=== PATIENT | male | born 1945 | race Caucasian/White ===

== ENCOUNTER 2019-07-29 06:01 | Inpatient (IN) ==
--- NOTE | 2019-07-09 16:34 | PAT Medication Instructions ---
Medication Instructions Date of Service July 09, 2019 Home Medications acetaminophen [Tylenol Arthritis Pain] 1,300 mg PO Q12H PRN allopurinol 300 mg PO QAM aspirin 81 mg PO HS cholecalciferol (vitamin D3) [Vitamin D3] 5,000 unit PO QAM colchicine [Colcrys] 0.6 mg PO UD PRN levothyroxine [Synthroid] 25 mcg PO QAM lisinopril-hydrochlorothiazide 1 tab PO QAM loratadine 10 mg PO HS metformin 500 mg PO QAM omeprazole 20 mg PO QAM simvastatin 80 mg PO HS tramadol 50 mg PO Q6H PRN STOP taking 48 hours before surgery colchicine [Colcrys] 0.6 mg PO UD PRN DO NOT take the morning of surgery cholecalciferol (vitamin D3) [Vitamin D3] 5,000 unit PO QAM lisinopril-hydrochlorothiazide 1 tab PO QAM metformin 500 mg PO QAM Take morning of surgery With a small sip of water, OTHERWISE NOTHING TO EAT OR DRINK AFTER MIDNIGHT: acetaminophen [Tylenol Arthritis Pain] 1,300 mg PO Q12H PRN (okay to take up to 4 hours prior to surgery if needed) allopurinol 300 mg PO QAM levothyroxine [Synthroid] 25 mcg PO QAM omeprazole 20 mg PO QAM tramadol 50 mg PO Q6H PRN (okay to take up to 4 hours prior to surgery if needed) Take evening before surgery acetaminophen [Tylenol Arthritis Pain] 1,300 mg PO Q12H PRN (if needed) aspirin 81 mg PO HS loratadine 10 mg PO HS simvastatin 80 mg PO HS tramadol 50 mg PO Q6H PRN (if needed) Other Notes If you have any questions please call us at [phone] or [phone] or [phone] or [phone]
--- NOTE | 2019-07-10 12:10 | Anesthesiology Consultation ---
Date of Service July 10, 2019 Assessment & Plan (1) Encounter for pre-operative examination: - Awaiting review preop testing. - Awaiting surgeon-ordered PCP clearance scheduled 07/18 (Dr. Hardy). - Check BSG AM DOS Chart Review Chart Review: Patient seen in Pre Admission Testing Teaching & Discussion Pre-Anesthesia Teaching/Discussion Notes: Instructed NPO after midnight before surgery,except medications with 15 cc of water. Medication instructions provided according to the PAT guidelines. History Surgery Operation Date: 07/29/19 11:40 Proposed Procedures p Right Total Knee Arthroplasty - Samm Mitchell DO Height/Weight Height: 6 ft 2 in Weight: 126.7 kg Allergies Allergy/AdvReac Type Severity Reaction Status Date / Time erythromycin base Allergy Anaphylaxis Verified 07/04/19 09:52 etodolac Allergy Anaphylaxis Verified 07/04/19 09:52 Penicillins Allergy Anaphylaxis Verified 07/04/19 09:52 Medications Home Medications Medication Instructions Recorded Confirmed Last Taken acetaminophen [Tylenol Arthritis 1,300 mg PO Q12H PRN 07/04/19 07/04/19 Unknown Pain] allopurinol 300 mg PO QAM 07/04/19 07/04/19 Unknown aspirin 81 mg PO HS 07/04/19 07/04/19 Unknown cholecalciferol (vitamin D3) 5,000 unit PO QAM 07/04/19 07/04/19 Unknown [Vitamin D3] colchicine [Colcrys] 0.6 mg PO UD PRN 07/04/19 07/04/19 Unknown levothyroxine [Synthroid] 25 mcg PO QAM 07/04/19 07/04/19 Unknown lisinopril-hydrochlorothiazide 1 tab PO QAM 07/04/19 07/04/19 Unknown loratadine 10 mg PO HS 07/04/19 07/04/19 Unknown metformin 500 mg PO QAM 07/04/19 07/04/19 Unknown omeprazole 20 mg PO QAM 07/04/19 07/04/19 Unknown simvastatin 80 mg PO HS 07/04/19 07/04/19 Unknown tramadol 50 mg PO Q6H PRN 07/04/19 07/04/19 Unknown Past Medical History Medical History Diabetes mellitus, type 2 NIDDM GERD (gastroesophageal reflux disease) controlled Gout Hearing deficit BL SMITH History of prostate cancer S/P PROSTATECTOMY (NO CHEMO/XRT) Hyperlipidemia Hypertension Hypothyroidism Obesity Osteoarthritis Renal insufficiency PCP MONITORING Sleep apnea CPAP Tinnitus RIGHT Urinary incontinence Exercise / Class Metabolic Activity III < 4 Walking/Shop/Light housework (uses cane PRN) Past Surgical History Surgical History History of colonoscopy History of prostate biopsy History of prostatectomy History of tonsillectomy Past Anesthesia History No Hx of Anesthesia Complications and No Family Hx of Anesthesia Complications History of PONV No Hx of PONV and No Hx of Motion Sickness Social History Smoking Status: Never smoker Do You Dip or Chew Tobacco: No Hx Alcohol Use: No Hx Substance Use: No substance use type: does not use Review of Systems Reflux controlled. Patient denies chest pain, shortness of breath, cough, wheezing, palpitations. Physical Exam Vital Signs VITALS BP 138/84 P 54 TEMP 97.6 SP02 95%RA RESP 18 PHYSICAL Full neck and c-spine range of motion. Full TMJ range of motion. TMD 3.5 finger breaths Mallampati Score 3 Dentition: missing upper front left/several missing Lungs: clear throughout to auscultation Cardiac: regular rate and rhythm, no murmurs noted Spine: normal Carotid arteries: negative bruit Extremities: no edema
--- NOTE | 2019-07-10 13:04 | XRay Report ---
XR chest Pre-admission PA/Lat HISTORY: Preop. COMPARISON: None. FINDINGS: The lungs are clear. The heart is mildly enlarged. No pleural effusions. No pneumothorax. N o evidence for pulmonary edema. IMPRESSION: Mild cardiomegaly. Electronically signed by: Carson Hopper M.D. 07/10/2019 1:02 PM
[2019-07-10 13:20] LABS: Basophils # (auto) 0.01 K/uL (0-0.2); Basophils % (auto) 0.1 %; Eosinophils # (auto) 0.28 K/uL (0-0.5); Eosinophils % (auto) 3.5 %; Hematocrit (blood only) 45.5 % (42-52); Hemoglobin 15.3 g/dL (14.0-18.0); Immature Granulocytes # (auto) 0.06 K/uL (0.00-0.02); Immature Granulocytes % (auto) 0.8 %; Lymphocytes # (auto) 2.02 K/uL (1.2-3.4); Lymphocytes % (auto) 25.3 %; Mean Corpuscular Hemoglobin 31.5 pg (25-34); Mean Corpuscular Hgb Conc 33.6 g/dL (32-36); Mean Corpuscular Volume 93.6 fL (80-100); Mean Platelet Volume 10.7 fL (7.4-10.4); Monocytes # (auto) 0.68 K/uL (0.11-0.59); Monocytes % (auto) 8.5 %; Neutrophils # (auto) 4.93 K/uL (1.4-6.5); Neutrophils % (auto) 61.8 %; Platelet Count 211 K/uL (130-400); RDW Coefficient of Variation 14.8 % (11.5-14.5); RDW Standard Deviation 50.6 fL (36.4-46.3); Red Blood Count 4.86 M/uL (4.7-6.1); White Blood Count 7.98 K/uL (4.8-10.8)
[2019-07-10 13:21] LABS: Appearance Urine Clear (Clear); Bilirubin Urine Negative (Negative); Blood Urine Negative (Negative); Color Urine Yellow; Glucose Urine UA Negative (Negative); Ketones Urine Negative (Negative); Leukocyte Esterase Urine Negative (Negative); Nitrite Urine Negative (Negative); Protein Urine Negative (Negative); Specific Gravity Urine 1.018 (1.000-1.030); Urobilinogen Urine Negative (Negative)
[2019-07-10 13:29] LABS: BUN Creatinine Ratio 17.9 (10-20); Calcium 9.5 mg/dl (8.5-10.1); Creatinine Clr Calc Pharmacy 61.1 ml/min; Est GFR (African American) 52.4; Est GFR (Non-African American) 45.2
[2019-07-10 13:38] LABS: Partial Thromboplastin Ratio 1.1; Partial Thromboplastin Time 28.7 Seconds (21.0-31.0); Prothrombin Time 10.5 Seconds (9.0-12.0)
[2019-07-10 14:05] LABS: Estimated Average Glucose 140 mg/dl; Hemoglobin A1C 6.5 % (4.5-5.6)
--- NOTE | 2019-07-28 10:36 | History & Physical Report ---
Date of Service July 28, 2019 Assessment & Plan (1) Degenerative joint disease of knee, right: I have indicated the patient for right total knee replacement. The risks, benefits and complications of surgery were explained to the patient which include but not limited to infection, acute blood loss, DVT/PE, injury to nerves, vessels, bone, soft tissue, arthrofibrosis, chronic pain, failure of the prosthesis, knee dislocation, leg length discrepancy, need for additional surgery, cardiac and pulmonary events and . The patient wished to proceed with surgery and informed consent was obtained at this time. We will plan for ASA 81mg BID post-operatively for DVT prophylaxis. Upon discharge the patient will be discharged home with home health services. Appropriate clearances by PCP were obtained. History of Present Illness Chief Complaint: Right knee pain/djd Primary Care Provider: Ketan Hardy The patient is a 74 year old male who presents with complaints of severe right knee pain and DJD. The patient has failed outpatient conservative treatments to this point which included IA corticosteroid injection, SMITH injection, bracing, home exercise/walking program. Patient unable to take NSAIDs secondary to DM/RI. The patient's pain and limited function have progressed to the point where they severely hinder their activities of daily living and they no longer tolerate exercise programs. They are requesting to proceed with total knee replacement surgery. Allergies Allergy/AdvReac Type Severity Reaction Status Date / Time erythromycin base Allergy Anaphylaxis Verified 07/29/19 06:52 etodolac Allergy Anaphylaxis Verified 07/29/19 06:52 Penicillins Allergy Anaphylaxis Verified 07/29/19 06:52 Home Medications Home Medications Medication Instructions Recorded Confirmed Type acetaminophen [Tylenol Arthritis 1,300 mg PO Q12H PRN 07/04/19 07/04/19 History Pain] allopurinol 300 mg PO QAM 07/04/19 07/04/19 History aspirin 81 mg PO HS 07/04/19 07/04/19 History cholecalciferol (vitamin D3) 5,000 unit PO QAM 07/04/19 07/04/19 History [Vitamin D3] colchicine [Colcrys] 0.6 mg PO UD PRN 07/04/19 07/04/19 History levothyroxine [Synthroid] 25 mcg PO QAM 07/04/19 07/04/19 History lisinopril-hydrochlorothiazide 1 tab PO QAM 07/04/19 07/04/19 History loratadine 10 mg PO HS 07/04/19 07/04/19 History metformin 500 mg PO QAM 07/04/19 07/04/19 History omeprazole 20 mg PO QAM 07/04/19 07/04/19 History simvastatin 80 mg PO HS 07/04/19 07/04/19 History tramadol 50 mg PO Q6H PRN 07/04/19 07/04/19 History Past Med/Surg History Medical History Diabetes mellitus, type 2 NIDDM GERD (gastroesophageal reflux disease) controlled Gout Hearing deficit BL SMITH History of prostate cancer S/P PROSTATECTOMY (NO CHEMO/XRT) Hyperlipidemia Hypertension Hypothyroidism Obesity Osteoarthritis Renal insufficiency PCP MONITORING Sleep apnea CPAP Tinnitus RIGHT Urinary incontinence Surgical History History of colonoscopy History of prostate biopsy History of prostatectomy History of tonsillectomy Social History Preferred Language: [place] Communication Ability: Effective Wrapper Stripper Required: No Beliefs That Will Affect Care: None Current Living Situation: Spouse Other Information That Helps Us Care for You: No Feels Safe at Home: Yes Safety Concerns: Feels Safe At This Time Smoking Status: Never smoker Do You Dip or Chew Tobacco: No ; Second Hand Exposure: No ; Hx Alcohol Use: No Hx Substance Use: No Review of Systems Review of Systems: All systems reviewed & are unremarkable except as noted in HPI & below Constitutional: as per Subjective / HPI Physical Exam Physical Exam: RLE NVSI +EHL/FHL/TA/GS SILT grossly, +2 DP pulse, compartments soft NT, limited painful ROM, 0-110 degrees of flexion, +crepitus. Constitutional: WD/WN, vitals as above Eyes: PERRL, conjunctivae normal, anicteric sclerae ENMT: external ear and nose normal, oropharynx normal Neck: trachea midline, no thyromegaly Respiratory: normal respiratory effort, lungs clear to auscultation Cardiovascular: RRR, no murmur, no edema Gastrointestinal (Abdomen): normal bowel sounds, soft, nontender, no hepatosplenomegaly Musculoskeletal: no cyanosis or clubbing, extremities motor strength 5/5 Skin: no rashes, warm and dry Neurologic: patellar DTR's 2+ bilat, sensation intact Psychiatric: A+Ox3, euthymic affect Lymphatic: no cervical or axillary lymphadenopathy Results & Data Diagnostic Findings Multiple views of the knee demonstrates severe tricompartmental DJD with complete loss of the medial and patellofemoral joint space. +osteophytes, +sclerosis, +subchondral cysts.
[~2019-07-29 06:01] MED LIST: ACETAMINOPHEN 500 MG TAB PO SCH; CeleBREX 200 MG CAP PO SCH; FAMOTIDINE 20 MG TAB PO SCH; LR 15ML/HR IV SCH; METOCLOPRAMIDE HCL 10 MG TABLET PO SCH; ROPIVACAINE 0.5% HCL/PF 150 MG, BUPIVACAINE 0.5% MPF 30 ML, EPINEPHrine 30MG/30ML (OR U... INSTIL SCH; TRANEXAMIC ACID 1,000 MG **IV Pre-op IV SCH; VANCOMYCIN CONSULT ACTIVE PRN; VANCOMYCIN HCL 2,000 MG in SODIUM CHLORIDE 0.9% 500 ML IV SCH; dexAMETHasone 4 MG TAB PO SCH
[2019-07-29] MEDS ORDERED: TRANEXAMIC ACID 1,000 MG **IV Intra-op IV SCH (06:30)
[2019-07-29] MEDS ORDERED: BUPIVACAINE 0.5 % 5 MG/1 ML PF 10ML VIAL ONE (06:38)
[2019-07-29] MEDS ORDERED: ROPIVACAINE 0.5% 5 MG/ML 30 ML VIAL ONE (06:38)
[2019-07-29] MEDS ORDERED: CeleBREX 200 MG CAP ONE (06:45)
[2019-07-29] MEDS ORDERED: fentaNYL citrate 100 MCG/2 ML VIAL ONE (06:46)
[2019-07-29] MEDS ORDERED: MIDAZOLAM HCL 1 MG/ML 2ML VIAL ONE (06:47)
--- NOTE | 2019-07-29 06:52 | History & Physical Bridge Note ---
Date of Service July 29, 2019 History & Physical Bridge Note I have examined the patient, reviewed the History & Physical and in the interval since the performance of the History & Physical I have noted the following changes of clinical significance: no changes noted
[2019-07-29] MEDS ORDERED: ONDANSETRON INJ 2 MG/ML 2 ML VIAL IV PRN ×2 (07:29→12:34)
[2019-07-29] MEDS ORDERED: MEPERIDINE HCL 25 MG/ML CARP IV PRN (07:29)
[2019-07-29] MEDS ORDERED: HYDROmorphone INJ 1 MG/ML SYRINGE IV PRN (07:29)
[2019-07-29] MEDS ORDERED: PHENYLEPHRINE 100MCG/ML 5ML SYR IV PRN (07:29)
[2019-07-29] MEDS ORDERED: ePHEDrine sulfate 50 MG/ML AMP IV PRN (07:29)
[2019-07-29] MEDS ORDERED: ATROPINE SULFATE 0.1 MG/ML 10ML SYR IV PRN (07:29)
[2019-07-29] MEDS ORDERED: LABETALOL HCL IV 5 MG/ML 20ML IV PRN (07:29)
[2019-07-29] MEDS ORDERED: fentaNYL citrate 100 MCG/2 ML VIAL IV PRN (07:29)
[2019-07-29] MEDS ORDERED: ONDANSETRON INJ 2 MG/ML 2 ML VIAL ONE (08:12)
[2019-07-29] MEDS ORDERED: LIDOCAINE HCL 2% 2 ML VIAL/AMP(20MG/ML) INFIL ONE (08:12)
[2019-07-29] MEDS ORDERED: PROPOFOL IV EMULSION 10 MG/ML 20 ML VIAL IV ONE (08:12)
[2019-07-29] MEDS ORDERED: BACITRACIN INJ 50,000 UNIT VIAL ONE (08:18)
[2019-07-29] MEDS ORDERED: EPINEPHrine INJ 1 MG/ML AMP ONE (08:42)
--- NOTE | 2019-07-29 10:44 | Post Operative Brief Note ---
Immediate Post Op Note v1 Date of Surgery July 29, 2019 Pre & Post Diagnosis Operation Date: 07/29/19 09:10 Pre-Op Diagnosis: Degenerative Joint Disease of Right Knee Post-Op Diagnosis: Degenerative Joint Disease of Right Knee I identified the patient and participated in the time-out.: Yes Procedure Operation Date: 07/29/19 09:10 Actual Procedures p Right Total Knee Arthroplasty(Right) - Samm Mitchell DO Surgeon Samm Mitchell DO Orthodontic Technician Drew De La Paz Estimated Blood Loss 50 Findings Consistent with Post-Op Diagnosis Fluids 800 cc LR Specimens proximal tibia and distal femur bone fragments Anesthesia Type Spinal MAC Complications none Disposition Disposition: Recovery Room Overlapping Procedure I was present for: the critical portions of procedure. I was immediately available: during the entire case. Back up surgeon: was not required during procedure.
--- NOTE | 2019-07-29 10:54 | Operative Report ---
Post Operative Report Pre & Post Diagnosis Operation Date: 07/29/19 09:10 Pre-Op Diagnosis: Degenerative Joint Disease of Right Knee Post-Op Diagnosis: Degenerative Joint Disease of Right Knee I identified the patient and participated in the time-out.: Yes Procedure Operation Date: 07/29/19 09:10 Actual Procedures p Right Total Knee Arthroplasty(Right) - Samm Mitchell DO Surgeon Samm Mitchell DO Gift Manager Drew De La Paz Estimated Blood Loss 50 Findings Consistent with Post-Op Diagnosis Fluids 800 cc LR Specimens Distal femur and proximal tibial bone cuts Anesthesia Type Spinal MAC Complications none Disposition Disposition: Recovery Room Indications The patient is a 74-year-old male presents with long history of severe right knee tricompartmental DJD and failed outpatient conservative treatments including NSAIDs, bracing, injections and home walking/exercise program. The patient's symptoms have progressed to the point where it has been difficult to perform normal activities of daily living. I have indicated the patient for a right total knee arthroplasty, the risks and benefits and complications of the procedure include but are not limited to infection bleeding damage to bone, nerves, vessels, surrounding soft tissue, blood clots, loss of function, leg length discrepancy, dislocation, failure of the components, need for additional surgery and . The patient wished to proceed with surgery at this time and informed consent was obtained. Appropriate clearances were obtained. Description of Procedure COMPONENTS USED: Margo persona knee system: Femur size 10 standard, Tibia size H, tibial articulating surface 12 PS, Patella 35 mm Following induction of spinal anesthesia, a tourniquet was applied to the proximal aspect of the thigh and the patient's right leg was prepped and draped in the usual sterile manner. A timeout was performed, patient identified and site reyna confirmed. Appropriate pre-operative IV antibiotics were given. The limb was exsanguinated with an Esmarch bandage and tourniquet was inflated to 300 mmHg. A longitudinal midline incision was made over the anterior knee. Subcutaneous tissue was sharply dissected down to fascia. Electrocautery was used for hemostasis. Next a parapatellar arthrotomy was performed. Patella was everted and the knee was flexed. A Plummer retractor was used to expose the synovium above on the anterior aspect of the femur and removed down to bone. Next, the anterior fat pad was removed to aid in visualization. The medial face of the tibia was cleared of soft tissue first with a Bovie and a meyer elevator. This tissue was retracted posteriorly using a blunt Hohmann. Next, the extra-medullary tibial cutting guide was placed to the anterior aspect of the tibia. The tibia resection level was set taking 2mm from the defective tibial condyle. Resection depth was once again confirmed with klaudia wing. The medial and lateral collateral ligament was protected with two Hohmann retractors. The tibia guide was removed and proximal tibial bone fragment removed utilizing straight osteotome, electrocautery and Grace. Next, the distal femur intramedullary canal was accessed utilizing the step drill. The intramedullary distal femur cutting guide was placed into the canal and pinned into place. The distal femur was cut on the 5 degree +0 setting. Next the cutting guide was removed and the femur was sized. Care was taken to ensure appropriate manufacturing engineer paint all rotation and 3 degree holes were drilled. A size 10 4-in-1 cutting block was placed on the distal end of the femur and secured into place with two short headed screws. Two bent Hohmann retractors were placed to protect the medial and lateral collateral ligaments. The oscillating saw was used to cut anterior, posterior, anterior chamfer and posterior chamfer. The four and one cutting block was removed and bone fragments excised. La minar veneer glue spreader was placed laterally and the ACL and PCL were removed followed by the medial meniscus and posterior medial osteophytes. Aquamantys was utilized for any posterior medial bleeders and Orthomix injected into the posterior medial capsule. A laminar veneer glue spreader was then placed in the medial compartment and the lateral meniscus and posterior osteophytes were removed. Aquamantys was utilized for any posterior lateral bleeders and Orthomix injected into the posterior lateral capsule. Next, drop josue and spacer block were placed with the leg in flexion and extension to assess alignment and flexion/extension gaps. Next, the proximal tibia was assessed and two bent Hohmans were placed medial and lateral to aid in visualization. The appropriate tibia size and rotation was selected and a size H tibial plate was pinned into place with appropriate rotation. Preparation of the tibia was completed utilizing the matching tibial drill and broach. I then turned my attention back to the distal femur in a trial femoral component was impacted into place. Appropriate femoral width was assessed and selected. Next the femur PS box cut guide was placed and cut made with the reciprocal saw and the PS box provisional placed. A trial size 10 PS tibia articular tray was placed and varus-valgus balance assessed in 0 degrees of extension and 30, 60 and 90 degrees of flexion. A final tibial articular surface size 12 PS was chosen. Assess was gained to the patella and caliper utilized to measure width. The patella reamer was utilized and remaining bone removed with oscillating saw. A size 35 mm patella button was selected and the patella pegs drilled. Trial patella button was placed and tracking was assessed. The knee was found to be well balanced, well aligned with excellent patella tracking. The trials were removed and final components were obtained and assembled. The knee was irrigated copiously with sterile saline solution mixed with bacitracin. Access to the proximal tibia was once again obtained utilizing to the Hohmans and the proximal tibia and distal femur were dried with lap sponges. The final components were cemented into place and all excess cement was removed. A trial tibial articular surface was placed while cemented hardened. Knee stability was once again assessed and the final component inserted. A Betadine soak was performed. After 3 minutes, the hip was once more irrigated with copious sterile saline solution with bacitracin. The knee was injected with the remaining Orthomix which includes a combination of Ropivicaine 0.5% 150mg, Bupivicaine 0.5%/Epinephrine 1:200,000 30ml, Toradol 30mg, Dexamethasone 4mg, Ketamine 10mg, Clonidine 100mcg and NSS 30ml solution. The capsulotomy was closed with #1 Vicryl followed by subcutaneous closure with 2-0 Vicryl suture and a 3-0 V-lock suture. Skin closure was performed using Prineo dressing followed by Micheal, 4 x 4s and geronimo wrap. Tourniquet was deflated at 96 minutes. The patient tolerated the procedure well and was taken to the PACU in stable condition. Due to the complex nature of the procedure, the entire surgery was performed with the operational assistance of Drew De La Paz PA-C. The psychologist research assistant, under direct supervision, was involved in the actual performance of all aspects of the surgical procedure including patient positioning, hemostasis, tissue retract ion, instrument management and wound closure. I attest to the content of the Intraoperative Record and any orders documented therein. Any exceptions are noted below.
--- NOTE | 2019-07-29 11:43 | Anesthesiology Progress Note ---
Date of Service July 29, 2019 Anesthesia Post Procedure Vital Signs Vital Signs: Temp Pulse Resp BP Pulse Ox 07/29/19 07:19 36.4 C L 83 18 133/84 94 Pain Intensity Right Leg: Pain Intensity: 3 Transfer of Care Handoff Completed per policy Notes Mental Status: alert / awake / arousable Patient Amnestic to Procedure: Yes Nausea / Vomiting: adequately controlled Pain: adequately controlled Airway Patency, RR, SpO2: stable & adequate BP & HR: stable & adequate Hydration State: stable & adequate Neuraxial Anesthesia: was administered and sensory block is resolving Anesthetic Complications: no major complications apparent and Pt Satisfied with anesthetic care Notes: The patient is awake and his vital signs are stable in PACU.
--- NOTE | 2019-07-29 12:08 | XRay Report ---
XR knee RT 2V routine CLINICAL HISTORY: Surgical Post Op postoperative evaluation COMPARISON: None. DISCUSSION: Anatomic alignment posttotal right knee arthroplasty. Could contact between prosthetic an d underlying bone. Expected soft tissue postoperative change. IMPRESSION: Anatomic alignment posttotal right knee arthroplasty. The above report was generated using voice recognition software. It may contain grammatical, syntax or spelling errors. Electronically signed by: Ayush Blanco M.D. 07/29/2019 12:07 PM
[2019-07-29] MEDS ORDERED: NALOXONE HCL 0.4 MG/1 ML VIAL/CARP IV PRN (12:34)
[2019-07-29] MEDS ORDERED: MAGNESIUM HYDROXIDE SUSP 30 ML UDC PO PRN (12:34)
[2019-07-29] MEDS ORDERED: HYDROmorphone INJ 0.5 MG/0.5 ML SYR IV PRN (12:34)
[2019-07-29] MEDS ORDERED: VANCOMYCIN CONSULT ACTIVE PRN (12:34)
[2019-07-29] MEDS ORDERED: METOCLOPRAMIDE HCL INJ 5 MG/ML 2 ML VIAL IV PRN (12:34)
[2019-07-29] MEDS ORDERED: bisacodyL 10 MG SUPP PR PRN (12:34)
[2019-07-29] MEDS ORDERED: PHARMACY GLYCEMIC MGMT CONSULT PRN (12:41)
[2019-07-29] MEDS ORDERED: GLUCOSE 40% GEL 15 GM TUBE PO PRN (13:15)
[2019-07-29] MEDS ORDERED: CARBOHYDRATES FOR HYPOGLYCEMIA PO PRN (13:15)
[2019-07-29] MEDS ORDERED: GLUCOSE 10 TABS/TUBE PO PRN (13:15)
[2019-07-29] MEDS ORDERED: GLUCAGON FOR INJ 1 MG VIAL IM PRN (13:15)
[2019-07-29] MEDS ORDERED: DEXTROSE 50% 50 ML SYRINGE IV PRN (13:15)
[2019-07-29] MEDS ORDERED: LANTUS PER UNIT CHARGE SQ ONE (13:30)
[2019-07-29] MEDS: ACETAMINOPHEN 500 MG TAB PO SCH ×2 (13:42→21:10)
--- NOTE | 2019-07-29 13:56 | Pharmacy Report ---
Glycemic Control Consultation - Date of Service July 29, 2019 - Scope Scope: Glycemic Pharmacist consulted for glycemic control and to write orders per [facility] inpatient glycemic control protocol - Objective Weight: 126.4 kg Accuchecks BSG (last 24hrs): 07/29/19 07/29/19 07/29/19 06:28 11:27 12:21 POC Glucose 165 H 142 H 171 H HbA1c: Hemoglobin A1c 6.5 % (4.5-5.6) H 07/10/19 12:25 - Recent Pertinent Medications Outpatient Anti-diabetic Regimen: * metformin Risk Factors for Insulin Resistance: * Steroids * Recent Surgery * Diet - Assessment & Plan Assessment & Plan: ASSESSMENT: * 74yo T2Dm male with adequate outpatient control per recent A1c * Pt is maintained on oral antidiabetic agents as an outpatient * Oral agents are not recommended for inpatient use d/t drug interactions, changing PO intake, and difficulty titrating for acute hyper/hypoglycemia. ADA recommends re-initiating outpatient oral agents 1-2 days prior to discharge if/when appropriate if they were held on admission. * Will hold oral agents for admission and utilize SQ basal bolus insulin regimen which is the recommended regimen for inpatient glycemic control. * Will initiate weight based insulin dosing for insulin gwyn patient and titrate based on BSG trends. * Will use adjusted body weight for obesity (BMI >35) * Patient received DXM 8mg PO pre-op--> steroid induced hyperglycemia may result PLAN FOR INPATIENT GLYCEMIC CONTROL: * Holding outpatient oral diabetes medications * Basal insulin * Lantus 20 units SQ x 1 dose today * further dosing TBD based on BSGs- may not be needed after today based on A1c * Bolus insulin * NovoLog per scale ACHS or Q6hrs while NPO. Additional checks/coverage at 0000 & 0400 tonight * Goal Range: Low 110 mg/dL - High 140 mg/dL * Correction Factor: 25 mg/dL/unit * Nutritional / Prandial insulin per carb ratio of 1 unit per 8 grams CHO consumed * Please note that the plan above was derived based on current level of insulin resistance and hospital stress. These recommendations are appropriate for inpatient admission only. Plan of care upon discharge will need to be reassessed to avoid potential outpatient hypo/hyperglycemia. Thank you.
[2019-07-29] MEDS: INSULIN ASPART 100 UNITS/ML 3 ML PEN SC SCH ×3 (14:07→21:11)
--- NOTE | 2019-07-29 14:41 | Orthopedic Progress Note ---
Date of Service July 29, 2019 Assessment & Plan (1) Degenerative joint disease of knee, right: Status post right total knee arthroplasty -Vanco x24 -DVT prophylaxis: SCDs, teds, ASA 81mg twice daily -Weight-bear as tolerates right lower extremity -PT/OT -Postoperative x-ray to be straight well aligned well fixed orthopedic prosthesis without evidence of fracture dislocation -A.m. labs -DC planning Subjective Post Operative Progress Note Patient seen sitting up in bed, comfortable, denies complaints, pain well controlled, no acute issues. Denies fevers, chills, nausea, vomiting, shortness of breath or chest pain. Review of Systems Review of Systems: All systems reviewed & are unremarkable except as noted in HPI & below Constitutional: as per Subjective / HPI Physical Exam Physical Exam: RLE NVSI +EHL/FHL/TA/GS SILT grossly, +2 DP pulse, compartments soft NT, dressing cdi. Constitutional: WD/WN, vitals as above Results & Data Vital Signs (Past 12 Hours) Vital Signs Temp Pulse Pulse Resp BP Pulse Ox 07/29/19 14:17 36.4 C L 87 18 129/75 93 07/29/19 13:12 79 18 118/75 91 07/29/19 12:43 75 18 111/68 92 07/29/19 12:15 36.5 C 76 16 112/71 94 07/29/19 11:50 36.8 C 77 20 105/68 94 07/29/19 11:40 75 21 101/85 96 07/29/19 11:30 78 21 97/61 L 96 07/29/19 11:21 36.4 C L 80 14 108/57 L 97 07/29/19 07:19 36.4 C L 83 18 133/84 94
[2019-07-29] MEDS ORDERED: INFLUENZA ADMINISTRATION CHARGE ONE (16:00)
[2019-07-29] MEDS ORDERED: INFLUENZA VACCINE HIGH DOSE 65+ 0.5 ML SYR IM ONE (16:00)
[2019-07-29] MEDS: SODIUM CHLORIDE 0.9% 1000ML 1,000 ML IV SCH ×2 (17:54→22:42)
[2019-07-29] MEDS: OXYCODONE HCL IR 5 MG TAB (IMMEDIATE RELEASE) PO PRN ×2 (17:58→23:36)
[2019-07-29] MEDS ORDERED: VANCOMYCIN HCL 2,000 MG in SODIUM CHLORIDE 0.9% 250 ML IV SCH (19:00)
[2019-07-29] MEDS ORDERED: VANCOMYCIN HCL 2,000 MG in SODIUM CHLORIDE 0.9% 500 ML IV SCH ×2 (20:15→20:30)
[2019-07-29] MEDS ORDERED: SIMVASTATIN 80 MG TAB PO SCH (21:00)
[2019-07-29] MEDS ORDERED: SENNA 8.6 MG TAB PO SCH (21:00)
[2019-07-29] MEDS ORDERED: LORATADINE 10 MG TAB PO SCH (21:00)
[2019-07-29] MEDS: DOCUSATE SODIUM 100 MG CAP PO SCH (21:07)
[2019-07-29] MEDS: ASPIRIN 81 MG ECTAB PO SCH (21:08)
[2019-07-30] MEDS: INSULIN ASPART 100 UNITS/ML 3 ML PEN SC SCH ×4 (00:16→12:47)
[2019-07-30 05:12] LABS: Hematocrit (blood only) 35.8 % (42-52); Hemoglobin 12.5 g/dL (14.0-18.0); Mean Corpuscular Hemoglobin 32.1 pg (25-34); Mean Corpuscular Hgb Conc 34.9 g/dL (32-36); Mean Corpuscular Volume 91.8 fL (80-100); Mean Platelet Volume 10.1 fL (7.4-10.4); Platelet Count 216 K/uL (130-400); RDW Coefficient of Variation 14.5 % (11.5-14.5); RDW Standard Deviation 48.2 fL (36.4-46.3); White Blood Count 19.01 K/uL (4.8-10.8)
[2019-07-30 05:38] LABS: Calcium 8.1 mg/dl (8.5-10.1); Creatinine Clr Calc Pharmacy 59.4 ml/min; Est GFR (African American) 51.6; Est GFR (Non-African American) 44.5; Potassium 4.4 mmol/L (3.5-5.1)
[2019-07-30] MEDS: ACETAMINOPHEN 500 MG TAB PO SCH ×2 (05:54→14:24)
[2019-07-30] MEDS ORDERED: LEVOTHYROXINE SODIUM 25 MCG TABLET PO SCH (06:30)
[2019-07-30] MEDS: ASPIRIN 81 MG ECTAB PO SCH (08:56)
[2019-07-30] MEDS: DOCUSATE SODIUM 100 MG CAP PO SCH (08:57)
[2019-07-30] MEDS ORDERED: PANTOprazole 40 MG TAB PO SCH (09:00)
[2019-07-30] MEDS ORDERED: allopurinoL 300 MG TAB PO SCH (09:00)
[2019-07-30] MEDS ORDERED: LISINOPRIL/HCTZ 20/12.5MG 1 TAB TAB PO SCH (09:00)
[2019-07-30] MEDS ORDERED: MULTIVITAMIN TAB PO SCH (09:00)
[2019-07-30] MEDS: OXYCODONE HCL IR 5 MG TAB (IMMEDIATE RELEASE) PO PRN ×2 (09:17→15:37)
--- NOTE | 2019-07-30 10:43 | Orthopedic Progress Note ---
Date of Service July 30, 2019 Assessment & Plan (1) Degenerative joint disease of knee, right: Status post right total knee arthroplasty POD#1 -Vanco x24 -DVT prophylaxis: SCDs, teds, ASA 81mg twice daily -Weight-bear as tolerates right lower extremity -PT/OT -Postoperative x-ray to be straight well aligned well fixed orthopedic prosthesis without evidence of fracture dislocation -A.m. labs - hgb 12.5, Cr 1.52, baseline admission Cr 1.5 -DC planning CKD, decreased est GFR, Cr 1.5 at admission - avoid nephrotoxic meds, hydration, Cr at baseline, follow up with PCP upon discharge Subjective Post Operative Progress Note Patient seen sitting in chair at bedside, comfortable, denies complaints, pain well controlled, no acute issues. Denies fevers, chills, nausea, vomiting, shortness of breath or chest pain. Review of Systems Review of Systems: All systems reviewed & are unremarkable except as noted in HPI & below Constitutional: as per Subjective / HPI Physical Exam Physical Exam: RLE NVSI +EHL/FHL/TA/GS SILT grossly, +2 DP pulse, compartments soft NT, dressing cdi. Results & Data Vital Signs (Past 12 Hours) Vital Signs Temp Pulse Resp BP Pulse Ox 07/30/19 07:20 36.6 C 76 18 157/91 H 93 07/30/19 03:49 36.5 C 77 18 124/74 92 07/29/19 23:55 36.6 C 86 18 128/78 93 Laboratory Results 07/30/19 07/30/19 07/30/19 Range/Units 08:01 04:50 04:50 WBC 19.01 H (4.8-10.8) K/uL RBC 3.90 L (4.7-6.1) M/uL Hgb 12.5 L (14.0-18.0) g/dL Hct 35.8 L (42-52) % MCV 91.8 (80-100) fL MCH 32.1 (25-34) pg MCHC 34.9 (32-36) g/dL RDW Std Deviation 48.2 H (36.4-46.3) fL RDW Coeff of Dieter 14.5 (11.5-14.5) % Plt Count 216 (130-400) K/uL MPV 10.1 (7.4-10.4) fL Sodium 134 L (136-145) mmol/L Potassium 4.4 (3.5-5.1) mmol/L Chloride 106 (98-107) mmol/L Carbon Dioxide 22 (21-32) mmol/L Anion Gap 6.0 (3-11) BUN 30 H (7-18) mg/dl Creatinine 1.52 H (0.6-1.4) mg/dl Est Cr Clr Drug Dosing 59.4 ml/min Est GFR ( Amer) 51.6 Est GFR (Non-Af Amer) 44.5 BUN/Creatinine Ratio 20.0 (10-20) Glucose 160 H (70-99) mg/dl POC Glucose 145 H (70-99) Calcium 8.1 L (8.5-10.1) mg/dl 07/30/19 07/29/19 07/29/19 Range/Units 03:41 23:56 21:07 WBC (4.8-10.8) K/uL RBC (4.7-6.1) M/uL Hgb (14.0-18.0) g/dL Hct (42-52) % MCV (80-100) fL MCH (25-34) pg MCHC (32-36) g/dL RDW Std Deviation (36.4-46.3) fL RDW Coeff of Dieter (11.5-14.5) % Plt Count (130-400) K/uL MPV (7.4-10.4) fL Sodium (136-145) mmol/L Potassium (3.5-5.1) mmol/L Chloride (98-107) mmol/L Carbon Dioxide (21-32) mmol/L Anion Gap (3-11) BUN (7-18) mg/dl Creatinine (0.6-1.4) mg/dl Est Cr Clr Drug Dosing ml/min Est GFR ( Amer) Est GFR (Non-Af Amer) BUN/Creatinine Ratio (10-20) Glucose (70-99) mg/dl POC Glucose 170 H 153 H 181 H (70-99) Calcium (8.5-10.1) mg/dl 07/29/19 07/29/19 07/29/19 Range/Units 17:22 12:21 11:27 WBC (4.8-10.8) K/uL RBC (4.7-6.1) M/uL Hgb (14.0-18.0) g/dL Hct (42-52) % MCV (80-100) fL MCH (25-34) pg MCHC (32-36) g/dL RDW Std Deviation (36.4-46.3) fL RDW Coeff of Dieter (11.5-14.5) % Plt Count (130-400) K/uL MPV (7.4-10.4) fL Sodium (136-145) mmol/L Potassium (3.5-5.1) mmol/L Chloride (98-107) mmol/L Carbon Dioxide (21-32) mmol/L Anion Gap (3-11) BUN (7-18) mg/dl Creatinine (0.6-1.4) mg/dl Est Cr Clr Drug Dosing ml/min Est GFR ( Amer) Est GFR (Non-Af Amer) BUN/Creatinine Ratio (10-20) Glucose (70-99) mg/dl POC Glucose 205 H 171 H 142 H (70-99) Calcium (8.5-10.1) mg/dl
--- NOTE | 2019-07-31 23:36 | Discharge Summary ---
Date of Service July 31, 2019 Admission HPI Per Admitting Provider The patient is a 74 year old male who presents with complaints of severe right knee pain and DJD. The patient has failed outpatient conservative treatments to this point which included IA corticosteroid injection, SMITH injection, bracing, home exercise/walking program. Patient unable to take NSAIDs secondary to DM/RI. The patient's pain and limited function have progressed to the point where they severely hinder their activities of daily living and they no longer tolerate exercise programs. They are requesting to proceed with total knee replacement surgery. Principal Diagnosis right total knee replacement Discharge Exam RLE NVSI +EHL/FHL/TA/GS SILT grossly, +2 DP pulse, compartments soft NT, dressing cdi. Constitutional WD/WN, vitals as above Discharge Data Allergies Allergy/AdvReac Type Severity Reaction Status Date / Time erythromycin base Allergy Anaphylaxis Verified 07/29/19 06:52 etodolac Allergy Anaphylaxis Verified 07/29/19 06:52 Penicillins Allergy Anaphylaxis Verified 07/29/19 06:52 Consultations 07/29/19 12:34 Consult Case Management - Discharge Planning Routine Procedures Performed Operation Date: 07/29/19 09:10 Actual Procedures p Right Total Knee Arthroplasty(Right) - Samm Mitchell DO Ordered Studies 07/29/19 05:00 US - OR guided needle placemen Routine Hospital Course (1) Degenerative joint disease of knee, right: The patient is a 74 -year-old male who presents with long standing history of severe right knee DJD and failed outpatient conservative treatments including NSAIDs, bracing, injections and home walking/exercise program. The patient's symptoms have progressed to the point where it has been difficult to perform even normal activities of daily living. I indicated the patient for a right total knee arthroplasty, the risks, benefits and complications of the procedure include but not limited to infection, bleeding, damage to bone, nerves, vessels, surrounding soft tissue, may develop blood clots, loss of function, leg length discrepancy, dislocation, failure of the components, loosening of the components, the need for additional surgery and . The patient wished to proceed with surgery at this time and informed consent was obtained. Hospital Course: On the patient was taken to the operating room, adequate anesthesia administered and underwent a right total knee arthroplasty. The patient tolerated the procedure well and was taken to the PACU in stable condition. Post-operatively the patient was started on a DVT ppx medication and given appropriate IV antibiotics. Consults were placed to physical therapy, occupational therapy and case management. On POD#1, the patient did well overnight and their pain was well controlled. Labs were drawn and the Hgb was 12.5. Cr 1.52, near baseline Cr 1.50. The patient progressed well with PT. Dressings were changed at this time and the incision was clean, dry and intact. The patients hospital stay was relatively uneventful and they were deemed stable by the orthopedic team and consultants to be discharged home with on 07/30/19. Discharge Instructions: Upon discharge the patient may weight bear as tolerates through their operative extremity. They were instructed to keep the incision clean and dry at all times. The patient may shower but should not submerge the incision, avoid bathing, pools and hot tubes. The patient was given a script for pain medication and should take as instructed. The patient was given a script for DVT ppx ASA 81mg BID and should take as directed. The patient was instructed to not drive or travel for long distances until cleared to do so. If the patient develops any symptoms of fevers, chills, nausea, vomiting, increased redness, swelling, pain or drainage from the surgical site, they should notify the office and/or proceed to the nearest emergency room. The patient should follow up in 10-14 days after surgery for their routine post-operative follow-up appointment and should call the office to confirm the date and time. Status post right total knee arthroplasty POD#1 -Vanco x24 -DVT prophylaxis: SCDs, teds, ASA 81mg twice daily -Weight-bear as tolerates right lower extremity -PT/OT -Postoperative x-ray to be straight well aligned well fixed orthopedic prosthesis without evidence of fracture dislocation -A.m. labs - hgb 12.5, Cr 1.52, baseline admission Cr 1.5 -DC planning CKD, decreased est GFR, Cr 1.5 at admission - avoid nephrotoxic meds, hydration, Cr at baseline, follow up with PCP upon discharge Total Time Total Time Spent Total Time Spent (In Minutes): 30 minutes Total Time Includes: Examination of the Patient, Discharge Planning, Medication Reconciliation and Communication With Other Providers Discharge Plan Discharge Items Patient Disposition: Home - Home Health Services Reason For Visit: Right Knee Osteoarthritis Discharge Diagnosis: Right total knee replacement Condition on Discharge: Good Activity: Per Instructions section Lifting: Wait until after follow-up appointment Bathing: Keep incision dry Bathing Comment: No bathing, pools or hot tubs. Sexual Activity: Wait until after follow-up appointment Exercise/Sports: Wait until after follow-up appointment Driving/Machine Use: No driving Weightbearing: Full weightbearing Non-emergency contact: Primary Care Provider and Surgeon Call non-emergency contact if: you have any medication questions, your symptoms worsen, your pain is not controlled, your pain is worsening, your pain is unusual for you, your pain is concerning for you, you have a fever, your temperature is above 101, your wound has increased redness, your wound has increased drainage and your wound pain has increased Follow-up/Referrals: Ketan Hardy D.O. [Primary Care Provider] - Diet: Carb Consistent or DM2 Addtl Attending Provider Instructions: ACTIVITY RECOMMENDATIONS: SELF CARE INSTRUCTIONS AFTER TOTAL KNEE REPLACEMENT A. You may need to continue a physical therapy program after discharge from the hospital. There are several options available to you. Your doctor will assist you in selecting the best one for you. 1. An out-patient facility 2 to 3 times a week for therapy or home therapy. 2. Continue working on all exercises taught to you in the hospital. Your goals should be to increase bending of your knee to 90 degrees and beyond and to fully straighten your knee. B. You may progress at your own pace from walking with a walker or crutches to a cane; then to no assistive devices. C. Make walking a part of your daily routine. Be up as much as comfortable with rest periods throughout the day. Rest with leg elevation is very important. Use the ice wrap frequently for the first 3-4 weeks. D. There are no restrictions on activities. You may ride in a car, shop, participate in intermodal truck driver and all social activities. E. Wear the long elastic stockings (JULIET hose) 20 hours a day for 2 weeks after surgery. They can be removed several times a day for laundering and for a bath. F. You may shower, no tub baths until cleared by your doctor. SPECIAL CARE INSTRUCTIONS: VERY IMPORTANT TO READ AND REVIEW A. There are a few signs you need to watch for after you are home. Call [facility] if you notice any of the followin. Increased severe knee pain. Some pain is expected especially when you exercise. 2. Increased swelling in your leg or knee; pain or swelling of the calf muscle in either lower leg. 3. Any fluid drainage from the incision. 4. Shortness of breath or chest pain. B. Please call [facility] at if you have any concerns or questions about your operation or recovery. The doctor or his nurse will return your call promptly. C. You must take antibiotics before dental work, bladder, bowel or other surgery. Your doctor will provide you with a permanent care to carry describing this precaution. IMPORTANT: * REMEMBER TO TAKE ASPIRIN, 81 MG, TWICE DAILY FOR 4 WEEKS UNLESS OTHERWISE DIRECTED. THIS IS YOUR BLOOD THINNER. * HIGH RISK PATIENTS MAY BE PRESCRIBED A STRONGER BLOOD THINNER. THIS WILL BE PROVIDED AT DISCHARGE. * CALL IF INCREASED PAIN, REDNESS, DRAINAGE OR FEVER GREATER THAT 101. * WEAR JULIET HOSE 20 HOURS PER DAY FOR 2 WEEKS. *DERMABOND Prineo- This is a mesh tape dressing that is covered with glue. It should remain in place until the incision is properly healed, usually 10-14 days. This dressing is designed to naturally slough off. You may trim the excess mesh tape as it peels off. Incision may be briefly wet in a shower. Dry immediately by blotting with a clean, dry towel. Do not bath or swim until instructed by your doctor. Do not scratch, rub, or pick at the dressing. Do not apply any topical ointments or lotions until dressing is completely removed and/or instructed by your doctor. There may be a small piece of suture material at one end of your incision. Do not pull or trim this. If it is bothersome or catching on clothing, you may cover it with a band-aid. * YOU MAY HAVE A LARGE BAND-AID LIKE DRESSING (SILVERON). THIS WILL REMAIN ON YOUR INCISION FOR 7 DAYS, THEN CAN BE REMOVED. IF INCISION IS LEAKING THROUGH DRESSING, CALL THE OFFICE . FOLLOW UP VISIT: If appointment is not already scheduled: Please call [facility] to make a follow-up appointment for 2 weeks after your surgery at . Please follow up with your PCP within 1 week. Pending Studies at Discharge: No Stand-Alone Forms: [facility], Opioid Pain Management Medications and DC Order Prescriptions: New aspirin [Ecotrin Low Strength] 81 mg Tablet,Delayed Release (Dr/Ec) 81 mg PO BID 28 Days Qty: 56 RF: 0 acetaminophen [Tylenol Extra Strength] 500 mg Tablet 1,000 mg PO Q8 PRN (Reason: pain) Qty: 90 RF: 0 oxycodone 5 mg Tablet 5 mg PO Q6H MDD 6 tabs PRN (Reason: pain) Qty: 30 RF: 0 sennosides [Senokot] 8.6 mg Tablet 17.2 mg PO HS PRN (Reason: constipation) Qty: 28 RF: 0 Continued metformin 500 mg Tablet 500 mg PO QAM RF: 0 lisinopril-hydrochlorothiazide 20-12.5 mg Tablet 1 tab PO QAM RF: 0 simvastatin [Zocor] 80 mg Tablet 80 mg PO HS RF: 0 levothyroxine [Synthroid] 25 mcg Tablet 25 mcg PO QAM RF: 0 allopurinol 300 mg Tablet 300 mg PO QAM RF: 0 colchicine [Colcrys] 0.6 mg Tablet 0.6 mg PO UD PRN (Reason: GOUT) RF: 0 loratadine [Claritin] 10 mg Tablet 10 mg PO HS RF: 0 omeprazole 20 mg Tablet,Delayed Release (Dr/Ec) 20 mg PO QAM RF: 0 cholecalciferol (vitamin D3) [Vitamin D3] 5,000 unit Tablet 5,000 unit PO QAM RF: 0 Discontinued aspirin 81 mg Tablet,Delayed Release (Dr/Ec) 81 mg PO HS RF: 0 tramadol 50 mg Tablet 50 mg PO Q6H PRN (Reason: Pain) RF: 0 acetaminophen [Tylenol Arthritis Pain] 650 mg Tablet Extended Release 1,300 mg PO Q12H PRN (Reason: Pain) RF: 0 Discharge Orders: Discharge Order (Routine); Ordered 07/30/19 Ordered By: Samm Mitchell Admission Data Admit Date/Time: 07/29/19 10:48 Attending Provider: Samm Mitchell Admit Provider: Samm Mitchell Primary Care Provider: Ketan Hardy Other Interventions: Discharge Summary Assessment (RN) Last Done: 07/30/19 11:31 DC Date/Time DO NOT enter until pt leaves facility: 07/30/19 16:13
== END 2019-07-30 16:13 | disposition home health service (06) | DRG 470 ==
LOC: ASU 06:01 → 3E 10:48